=== PATIENT | male | born 1990 | race Caucasian/White ===

== ENCOUNTER → 2021-01-17 | Outpatient (CLI) | payer SELFPAY ==
--- NOTE | 2021-01-17 16:40 | REP ---
INDICATION: NUMBNESS. COMPARISON: None. TECHNIQUE: Axial and sagittal imaging planes are utilized for T1 and T2-weighted scans. Sequences include spin-echo, fast spin echo, FLAIR, and diffusion weighted sequences. FINDINGS: No bony calvarial lesion is seen. There is no evidence of tonsillar ectopia. There is however a low T1 high T2 signal intensity cystic area in the left dorsal medulla. This intra medullary lesion appears to be cystic change or encephalomalacia. It measures 14 x 4 x 8 mm in overall dimension. In addition, sagittal and parasagittal T1 weighted scans demonstrate evidence of a cervical hydro may sheldon or syrinx cavity. Cervical, thoracic and, possibly lumbar MRI study should be considered for further evaluation. No abnormality is noted in the stiven, cerebellar peduncle, or in either cerebellar hemisphere. Lateral, 3rd, and 4th ventricles are normal in size and position. Cormier-white differentiation pattern is otherwise intact. Diffusion-weighted scans show no evidence of restricted diffusion to suggest acute ischemia. No extra-axial fluid collection is seen. There is no evidence of intraorbital abnormality or significant paranasal sinus disease. 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 Cervicothoracic spine MRI study recommended for further evaluation, preferably without and with intravenous gadolinium. No other intracranial lesion seen.... <Electronically signed by Gaetano Nelson > 01/17/21 [id number]
== END ==
LOC: M PLAIMG 15:31
PROVIDERS: ATTEND Nurse Practitioner Family
DX: R20.0 Anesthesia of skin (principal)

== ENCOUNTER → 2021-02-14 | Outpatient (CLI) | payer SELFPAY | LOC: M PLAIMG 12:30 | PROVIDERS: ATTEND Nurse Practitioner Family | DX: Q06.4 Hydromyelia (principal) ==

== ENCOUNTER → 2021-03-02 | Outpatient (CLI) | payer SELFPAY ==
[~2021-03-02] MED LIST: PROHANCE 279.3MG/ML 15ML VIAL ONE
== END ==
LOC: M PLAIMG 07:42
PROVIDERS: ATTEND Nurse Practitioner Family
DX: Q06.4 Hydromyelia (principal)